=== PATIENT | female | born 1970 | race Caucasian/White ===

== ENCOUNTER 2023-09-12 09:47 | Emergency (ER) | payer OTHER ==
[2023-09-12 10:00] VITALS: BP 108/71; PULSE 78; RESP 18; TEMP 98.4; BMI 26.2
[2023-09-12] MEDS ORDERED: LIDOCAINE 5% TOPICAL PATCH TP ONE (10:24)
[2023-09-12 11:36] LABS: HCG,QUALITATIVE URINE Negative; PH,URINE 5.5 (5.0-8.0); URINE APPEARANCE TURBID; URINE BILIRUBIN NEGATIVE (NEGATIVE); URINE COLOR YELLOW; URINE GLUCOSE (UA) NEGATIVE (NEGATIVE); URINE KETONE NEGATIVE (NEGATIVE); URINE LEUK ESTERASE NEGATIVE (NEGATIVE); URINE NITRITE NEGATIVE (NEGATIVE); URINE PROTEIN NEGATIVE (NEGATIVE); URINE UROBILINOGEN 0.2 mg/dL (0.2-1.0)
[2023-09-12] MEDS ORDERED: LIDOCAINE 4% PATCH TP ONE (11:50)
[2023-09-12] MEDS ORDERED: LIDOCAINE PATCH REMOVAL MC ONE (22:00)
== END 2023-09-12 13:26 | disposition home or self-care (01) ==
LOC: JER 09:47 → JERFT 09:47
DX: M54.50 Low back pain, unspecified (principal)
CPT/HCPCS: 72100-TC-FY; 81003; 84703; 87086; 99284-25